=== PATIENT | male | born 1985 | race American Indian/Alaskan Native ===

== ENCOUNTER 2016-11-27 16:19 | Emergency (ER) | payer OTHER ==
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
[2016-11-27 19:22] VITALS: BP 118/73
== END 2016-11-27 19:21 | disposition home or self-care (01) ==
LOC: ED 16:19
DX: S16.1XXA Strain of muscle, fascia and tendon at neck level, initial encounter (principal); S46.912A Strain of unspecified muscle, fascia and tendon at shoulder and upper arm level, left arm, initial encounter; F17.200 Nicotine dependence, unspecified, uncomplicated; V89.2XXA Person injured in unspecified motor-vehicle accident, traffic, initial encounter; Y93.89 Activity, other specified; Y99.9 Unspecified external cause status; Y92.488 Other paved roadways as the place of occurrence of the external cause
CPT/HCPCS: 99282